=== PATIENT | male | born 1995 | race Caucasian/White ===

== ENCOUNTER 2019-12-19 05:32 | Emergency (ER) | payer SELFPAY ==
[~2019-12-19] VITALS: Ht 170.2 cm; Wt 90.7 kg
[2019-12-19 05:41] VITALS: BP 140/93
--- NOTE | 2019-12-19 05:43 | NUR ---
PT TAKEN TO BED 11
--- NOTE | 2019-12-19 05:44 | NUR ---
Dr. Landis examining patient.
--- NOTE | 2019-12-19 05:48 | NUR ---
PATIENT SEEN AND CLEARED BY DR. HSIEH. NO NURSING CARE RENDERED.
[2019-12-19 05:50] VITALS: BP 140/93
== END 2019-12-19 05:50 | disposition home or self-care (01) ==
LOC: MED 05:32
DX: J03.90 Acute tonsillitis, unspecified (principal)
CPT/HCPCS: 99283

== ENCOUNTER 2019-12-19 14:14 | Emergency (ER) | payer SELFPAY ==
[~2019-12-19] VITALS: Ht 170.2 cm; Wt 90.7 kg
[2019-12-19 14:28] VITALS: BP 130/79
--- NOTE | 2019-12-19 14:39 | NUR ---
24 Y/O M C/C SORE THROAT X 3 DAYS. PER PT WAS SEEN IN [facility] ER THIS MORNING AND WAS TOLD A DX OF TONISILITIS. PER PT NO PAIN. PT IN NO DISTRESS. NKA. NO HX. NO RX. NO N/V/D. SIDE RAIL X1.
[2019-12-19] MEDS ORDERED: KETOROLAC 30 MG/ML VIAL IM ONE (14:45)
[2019-12-19] MEDS ORDERED: DEXAMETHASONE 10 MG/ML VIAL IM ONE (14:45)
[2019-12-19 14:53] VITALS: BP 130/79
--- NOTE | 2019-12-19 14:53 | NUR ---
Patient discharged with v/s stable. Written and verbal after care instructions given and explained. Patient verbalized understanding. Ambulatory with steady gait. All questions addressed prior to discharge. Advised to follow up with PMD.
== END 2019-12-19 14:53 | disposition home or self-care (01) ==
LOC: MED 14:14
DX: J03.90 Acute tonsillitis, unspecified (principal)
CPT/HCPCS: 96372; 99284; J1100; J1885

== ENCOUNTER 2020-02-02 12:06 | Emergency (ER) | payer SELFPAY ==
[~2020-02-02] VITALS: Ht 170.2 cm; Wt 88.9 kg
[2020-02-02 12:11] VITALS: BP 140/88
--- NOTE | 2020-02-02 12:14 | NUR ---
PT TAKEN TO BED 12.
--- NOTE | 2020-02-02 12:22 | NUR ---
DR. PAINTER EVALUATING PT AT BEDSIDE.
--- NOTE | 2020-02-02 12:24 | NUR ---
24/M C/O INTERMITTENT LUQ PAIN WITH SOME RADIATION TO LT LOWER ABD X 5 DAYS A/W N/V. DENIES F/C. DENIES TRAUMA TO AFFECTED AREA. NO DIARRHEA. PAIN 04/05 AT THIS TIME. ACTIVE VOMITING IN TRIAGE. STATES MARIJUANA USE. VSS. HX- DENIES Addendum: 02/02/20 at 1246 by QUIN NONBLOODY VOMITUS. PER PT HE HAS BEEN VOMITING BILE.
--- NOTE | 2020-02-02 12:27 | NUR ---
LABS DRAWN BEDSIDE
[2020-02-02] MEDS: NACL 0.9% 1,000 ML IV ONE (12:28)
[2020-02-02] MEDS: ONDANSETRON 4 MG/2 ML VIAL IVP ONE (12:43)
[2020-02-02] MEDS: FAMOTIDINE 20 MG/2 ML VIAL IVP ONE (12:43)
[2020-02-02] MEDS: DEXT 5% / LACT RING 1,000 ML IV ONE (12:43)
--- NOTE | 2020-02-02 12:44 | NUR ---
URINAL PROVIDED TO PT AND MADE PT AWARE OF NEED FOR URINE SAMPLE. PT VERBALIZED UNDERSTANDING, STATES CAN NOT VOID NOW BUT STILL TRY LATER.
--- NOTE | 2020-02-02 12:45 | NUR ---
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
[2020-02-02 12:56] LABS: BASOPHILS % (AUTO) 0.4 % (0.0-2.0); EOSINOPHILS % (AUTO) 0.1 % (0.0-4.0); HEMATOCRIT 43.3 % (36-52); HEMOGLOBIN 14.8 g/dL (12.0-18.0); LYMPHOCYTES # (AUTO) 2.2 K/uL (2.0-11.5); LYMPHOCYTES % (AUTO) 18.4 % (20.5-51.1); MEAN CORPUSCULAR HEMOGLOBIN 28 pg (27-31); MEAN CORPUSCULAR HGB CONC 34 g/dL (33-37); MEAN CORPUSCULAR VOLUME 81.5 fL (80-94); MONOCYTES # (AUTO) 0.9 K/uL (0.8-1.0); MONOCYTES % (AUTO) 7.4 % (1.7-9.3); NEUTROPHILS # (AUTO) 8.8 K/uL (1.8-7.7); NEUTROPHILS % (AUTO) 73.7 % (42.2-75.2); PLATELET COUNT (AUTO) 325 K/uL (140-450); RED BLOOD CELL COUNT(AUTO) 5.31 MIL/uL (4.20-6.10); RED CELL DISTRIBUTION WIDTH 13.5 % (11.6-13.7)
--- NOTE | 2020-02-02 12:58 | NUR ---
PT ATTEMPTING TO PROVIDE URINE SAMPLE VIA URINAL AT THIS TIME
--- NOTE | 2020-02-02 13:05 | NUR ---
URINE SAMPLE HANDED TO MOVEMAN
[2020-02-02 13:09] LABS: ALBUMIN 4.3 g/dL (3.4-5.0); ANION GAP 15.9 (8-16); CARBON DIOXIDE 24.3 mmol/L (21-32); CREATININE 1.1 mg/dL (0.6-1.3); POTASSIUM 3.2 mmol/L (3.5-5.1); TOTAL BILIRUBIN 0.9 mg/dL (0.0-1.0)
--- NOTE | 2020-02-02 13:27 | NUR ---
AMB TO BATHROOM WITH BRISK STEADY GAIT
[2020-02-02 13:41] LABS: APPEARANCE,URINE HAZY (CLEAR); BILIRUBIN,URINE 1+ (NEGATIVE); BLOOD, URINE NEGATIVE (NEGATIVE); COLOR,URINE YELLOW (YELLOW); LEUKOCYTE ESTERASE ,URINE NEGATIVE (NEGATIVE); NITRITE, URINE NEGATIVE (NEGATIVE); UGLUCOSE TRACE (NEGATIVE)
--- NOTE | 2020-02-02 14:17 | NUR ---
U/S TECH AT BEDSIDE
[2020-02-02] MEDS: MORPHINE SULFATE 4 MG/ML SYR IVP ONE (15:38)
[2020-02-02] MEDS: POTASSIUM CHLORIDE 10 MEQ TABER PO ONE (16:16)
[2020-02-02 16:50] VITALS: BP 132/69
== END 2020-02-02 16:50 | disposition home or self-care (01) ==
LOC: MED 12:06
DX: T73.0XXA Starvation, initial encounter (principal); F12.10 Cannabis abuse, uncomplicated; E87.6 Hypokalemia
CPT/HCPCS: 36415; 76705; 80053; 81003; 83690; 85025; 96365; 96375; 99284; J2270; J2405; J3490; Q0092

== ENCOUNTER 2020-04-18 16:15 | Emergency (ER) | payer SELFPAY ==
[~2020-04-18] VITALS: Ht 170.2 cm; Wt 90.7 kg
[2020-04-18 16:52] VITALS: BP 146/71
--- NOTE | 2020-04-18 16:56 | NUR ---
WAIT AT LOBBY. HANDED ON URINE CUP.
--- NOTE | 2020-04-18 18:04 | NUR ---
PT TAKEN TO BED 11.
--- NOTE | 2020-04-18 18:13 | NUR ---
24 Y/O M C/C LUQ ABDOMINAL PAIN, NON RADIATING, 7/10 PAIN, PRESSURE SENSATION SINCE 0400 HOURS TODAY. PT FURTHER COMPLAINTS OF VOMITTING > 4 EPISODES SINCE PAIN BEGUN. PER PT NOTHING ALLEVIATES OR EXARCERBATES THE PAIN. PT HAS NOT TAKEN OTC RX. NKA. NO HX,SX,RX. NO DIARREAH. SIDE RAIL X1.
[2020-04-18 19:12] LABS: BASOPHILS % (AUTO) 0.1 % (0.0-2.0); HEMATOCRIT 42.3 % (36-52); HEMOGLOBIN 14.1 g/dL (12.0-18.0); LYMPHOCYTES # (AUTO) 0.8 K/uL (2.0-11.5); LYMPHOCYTES % (AUTO) 6.2 % (20.5-51.1); MEAN CORPUSCULAR HEMOGLOBIN 28 pg (27-31); MEAN CORPUSCULAR HGB CONC 33 g/dL (33-37); MONOCYTES # (AUTO) 0.7 K/uL (0.8-1.0); MONOCYTES % (AUTO) 5.2 % (1.7-9.3); NEUTROPHILS % (AUTO) 88.5 % (42.2-75.2); PLATELET COUNT (AUTO) 321 K/uL (140-450); RED CELL DISTRIBUTION WIDTH 13.3 % (11.6-13.7); WHITE BLOOD COUNT (AUTO) 13.6 K/uL (4.8-10.8)
--- NOTE | 2020-04-18 19:16 | NUR ---
REPORT RECEIVED FROM STEVE HASSAN FOR CONTINUATION OF CARE.
--- NOTE | 2020-04-18 19:16 | NUR ---
REPORT GIVEN TO TOO WILSON FOR CONTINUITY OF CARE
[2020-04-18 19:28] LABS: ALBUMIN 4.3 g/dL (3.4-5.0); ANION GAP 21.6 (8-16); CARBON DIOXIDE 20.8 mmol/L (21-32); POTASSIUM 3.4 mmol/L (3.5-5.1); TOTAL BILIRUBIN 0.5 mg/dL (0.0-1.0)
[2020-04-18] MEDS ORDERED: KETOROLAC 30 MG/ML VIAL IVP ONE (19:35)
[2020-04-18] MEDS ORDERED: ONDANSETRON 4 MG/2 ML VIAL IVP ONE (19:35)
[2020-04-18] MEDS ORDERED: NACL 0.9% 1,000 ML IV ONE (19:35)
[2020-04-18 20:05] LABS: APPEARANCE,URINE HAZY (CLEAR); BILIRUBIN,URINE NEGATIVE (NEGATIVE); BLOOD, URINE NEGATIVE (NEGATIVE); COLOR,URINE YELLOW (YELLOW); LEUKOCYTE ESTERASE ,URINE NEGATIVE (NEGATIVE); NITRITE, URINE NEGATIVE (NEGATIVE); UGLUCOSE NEGATIVE (NEGATIVE)
--- NOTE | 2020-04-18 20:07 | NUR ---
PT TAKEN TO CT VIA REMMA.
[2020-04-18 20:34] VITALS: BP 139/68
--- NOTE | 2020-04-18 22:02 | NUR ---
Patient discharged with v/s stable. Written and verbal after care instructions given and explained. Patient alert, oriented and verbalized understanding of instructions. Ambulatory with steady gait. All questions addressed prior to discharge. ID band removed. Patient advised to follow up with PMD. Rx of IBUPROFEN AND ZOFRAN given. Patient educated on indication of medication including possible reaction and side effects. Opportunity to ask questions provided and answered.
== END 2020-04-18 22:02 | disposition home or self-care (01) ==
LOC: MED 16:15
DX: R10.9 Unspecified abdominal pain (principal); R11.2 Nausea with vomiting, unspecified
CPT/HCPCS: 36415; 74176; 80053; 81003; 83690; 85025; 96361; 96374; 96375; 99284; J1885; J2405; J7030

== ENCOUNTER 2023-03-02 21:49 | Emergency (ER) | payer MEDICAID ==
[~2023-03-02] VITALS: Ht 170.2 cm; Wt 89.8 kg
[2023-03-02 22:18] VITALS: BP 144/78
--- NOTE | 2023-03-02 22:23 | NUR ---
TO LOBBY FOLLOWING TRIAGE
--- NOTE | 2023-03-03 00:49 | NUR ---
Dr. Landis examining patient.
[2023-03-03] MEDS ORDERED: NACL 0.9% 1,000 ML IV ONE (00:55)
[2023-03-03] MEDS ORDERED: KETOROLAC 30 MG/ML VIAL IVP ONE (00:55)
[2023-03-03 01:04] LABS: BASOPHILS % (AUTO) 0.2 % (0.0-2.0); HEMATOCRIT 42.2 % (36-52); HEMOGLOBIN 14.2 g/dL (12.0-18.0); LYMPHOCYTES # (AUTO) 0.9 K/uL (2.0-11.5); LYMPHOCYTES % (AUTO) 6.7 % (20.5-51.1); MEAN CORPUSCULAR HEMOGLOBIN 27 pg (27-31); MEAN CORPUSCULAR HGB CONC 34 g/dL (33-37); MONOCYTES # (AUTO) 0.8 K/uL (0.8-1.0); MONOCYTES % (AUTO) 5.8 % (1.7-9.3); NEUTROPHILS # (AUTO) 12.3 K/uL (1.8-7.7); NEUTROPHILS % (AUTO) 87.3 % (42.2-75.2); PLATELET COUNT (AUTO) 339 K/uL (140-450); RED BLOOD CELL COUNT(AUTO) 5.21 MIL/uL (4.20-6.10); RED CELL DISTRIBUTION WIDTH 13.9 % (11.6-13.7); WHITE BLOOD COUNT (AUTO) 14.1 K/uL (4.8-10.8)
--- NOTE | 2023-03-03 01:06 | NUR ---
PT RETURN FROM CT TO ER LOBBY
[2023-03-03 01:21] LABS: ALBUMIN 4.6 g/dL (3.4-5.0); ANION GAP 16.3 (8-16); CARBON DIOXIDE 27.3 mmol/L (21-32); CREATININE 0.9 mg/dL (0.6-1.3); POTASSIUM 3.6 mmol/L (3.5-5.1); TOTAL BILIRUBIN 0.7 mg/dL (0.0-1.0)
--- NOTE | 2023-03-03 01:27 | NUR ---
PT TAKEN TO BED 6
[2023-03-03 01:35] VITALS: BP 148/87
[2023-03-03 03:43] LABS: APPEARANCE,URINE SL CLOUDY (CLEAR); BILIRUBIN,URINE 1+ (NEGATIVE); BLOOD, URINE NEGATIVE (NEGATIVE); COLOR,URINE YELLOW (YELLOW); LEUKOCYTE ESTERASE ,URINE NEGATIVE (NEGATIVE); NITRITE, URINE NEGATIVE (NEGATIVE); UGLUCOSE NEGATIVE (NEGATIVE)
[2023-03-03 04:07] LABS: BARBITURATE, URINE NEGATIVE ng/ml (NEG <=200); BENZODIAZEPINE, URINE NEGATIVE ng/mL (NEG <=200); CANNABINOID, URINE POSITIVE ng/mL (NEG <=50); COCAINE, URINE NEGATIVE ng/mL (NEG <=300); OPIATE, URINE NEGATIVE ng/mL (NEG <=2000); PHENCYCLIDINE SCREEN,URINE NEGATIVE ng/mL (NEG <=25)
== END 2023-03-03 04:50 | disposition home or self-care (01) ==
LOC: MED 21:49
DX: R11.15 Cyclical vomiting syndrome unrelated to migraine (principal)
CPT/HCPCS: 36415; 74176; 80053; 80305; 81003; 85025; 96361; 96374; 99285; J1885; J7030; 99283